=== PATIENT | female | born 1965 ===

== ENCOUNTER 2018-09-16 14:49 | Outpatient (CLI) | payer SELFPAY | END 2018-09-16 14:50 | disposition home or self-care (01) | LOC: C.LAB 14:49 | DX: E03.9 Hypothyroidism, unspecified (principal) ==

== ENCOUNTER 2018-12-13 15:20 | Outpatient (CLI) | payer SELFPAY | END 2018-12-13 15:21 | disposition home or self-care (01) | LOC: C.LAB 15:20 | DX: E03.9 Hypothyroidism, unspecified (principal); R06.09 Other forms of dyspnea; E66.9 Obesity, unspecified; R00.2 Palpitations ==